=== PATIENT | female | born 1985 | race Two or more races ===

== ENCOUNTER 2024-12-05 10:32 | Day surgery (SDC) | payer BC, MEDICAID ==
[~2024-12-05 10:32] MED LIST: Sodium Chloride 0.9% 10 ML Syringe FLUSH PRN; Sodium Chloride 0.9% 10 ML Syringe FLUSH SCH
[2024-12-05] MEDS: Lactated Ringers 1,000 ML IV SCH (11:15)
[2024-12-05] MEDS ORDERED: Propofol 200 MG/20 ML SDV ONE ×2 (11:23→15:11)
[2024-12-05] MEDS ORDERED: Ondansetron 4 MG/2 ML SDV ONE (14:42)
[2024-12-05] MEDS ORDERED: fentaNYL 100 MCG/2 ML SDV ONE (14:43)
[2024-12-05] MEDS ORDERED: propofoL 500 MG/50 ML 50 ML ONE (14:43)
[2024-12-05] MEDS ORDERED: Midazolam 1 MG/ML 2 ML SDV ONE (14:43)
[2024-12-05] MEDS ORDERED: Lidocaine 2% 5 ML SDV ONE (14:44)
== END 2024-12-05 16:30 | disposition home or self-care (01) ==
LOC: JD.SDS 10:32
PROVIDERS: ATTEND Surgery
DX: D50.9 Iron deficiency anemia, unspecified (principal); K20.90 Esophagitis, unspecified without bleeding; K31.819 Angiodysplasia of stomach and duodenum without bleeding; K64.8 Other hemorrhoids; K44.9 Diaphragmatic hernia without obstruction or gangrene; R13.10 Dysphagia, unspecified; F41.1 Generalized anxiety disorder; Z79.899 Other long term (current) drug therapy
CPT/HCPCS: 43239; 45380; J2003; J2250; J2405; J2704; J3010; J7120; 00813

== ENCOUNTER 2024-12-28 14:59 | Emergency (ER) | payer BC, MEDICAID ==
[2024-12-28] MEDS: Metoclopramide 10 MG/2 ML SDV IVPUSH ONE (16:07)
[2024-12-28] MEDS: Ketorolac 30 MG/ML SDV IVPUSH ONE (16:10)
[2024-12-28] MEDS: diphenhydrAMINE 50 MG/ML SDV IVPUSH ONE ×2 (16:15→16:20)
[2024-12-28 16:31] LABS: A/G RATIO 0.9 (1-2); ALBUMIN 3.9 g/dl (3.4-5.0); ANION GAP 16.4 (5-15); BILIRUBIN TOTAL 0.5 mg/dL (0.2-1.0); C-REACTIVE PROTEIN 5.4 mg/dL (<0.30); CALCIUM 9.6 mg/dL (8.5-10.1); CREATININE 0.7 mg/dL (0.55-1.02); EST CRCL DRUG DOSING (CG) 79.04 mL/min; MAGNESIUM 1.7 mg/dL (1.8-2.4); POTASSIUM,K 4.4 mEq/L (3.5-5.1); PROTEIN TOTAL,TP 8.2 g/dl (6.4-8.2)
[2024-12-28 16:33] LABS: BASOPHILS ABSOLUTE AUTO 0.1 K/mm3 (0.0-0.2); BASOPHILS PERCENT AUTO 0.5 % (0.0-1.0); EOSINOPHILS PERCENT AUTO 0.1 % (0.0-6.0); HEMATOCRIT 45.4 % (37.0-47.0); HEMOGLOBIN 15.2 gm/dl (12.0-16.0); IMMATURE GRAN ABSOLUTE AUTO 0.03 K/mm3 (0.00-0.05); IMMATURE GRAN PERCENT AUTO 0.3 % (0.0-0.4); LYMPHOCYTES ABSOLUTE AUTO 0.5 K/mm3 (1.0-4.8); LYMPHOCYTES PERCENT AUTO 4.9 % (24.0-44.0); MEAN CORPUSCULAR HEMOGLOBIN 28.4 pg (28.0-32.0); MEAN CORPUSCULAR HGB CONC 33.5 g/dl (32.0-36.0); MEAN CORPUSCULAR VOLUME 84.7 fl (83.0-99.0); MEAN PLATELET VOLUME 11.5 fl (9.4-12.3); MONOCYTES ABSOLUTE AUTO 0.7 K/mm3 (0.0-0.8); MONOCYTES PERCENT AUTO 6.8 % (0.0-8.0); NEUTROPHILS ABSOLUTE AUTO 8.8 K/mm3 (1.8-7.7); NEUTROPHILS PERCENT AUTO 87.4 % (41.0-71.0); PLATELET COUNT,PLT 297 K/mm3 (150-400); RED BLOOD CELL COUNT 5.36 M/mm3 (4.10-5.30); WHITE BLOOD CELL COUNT,WBC 10.12 K/mm3 (3.9-11.3)
[2024-12-28 16:55] LABS: APPEARANCE,URINE CLEAR (Clear); BILIRUBIN,URINE NEGATIVE (Negative); COLOR,URINE YELLOW (Yellow); GLUCOSE,URINE NEGATIVE (Negative); KETONES,URINE 2+ (Negative); LEUKOCYTE ESTERASE,URINE 1+ (Negative); NITRITE,URINE NEGATIVE (Negative); OCCULT BLOOD,URINE NEGATIVE (Negative); PROTEIN,URINE NEGATIVE (Negative); UROBILINOGEN,URINE 0.2 (0.2-1.0)
[2024-12-28 17:23] LABS: BACTERIA,URINE MANY /hpf (FEW); MUCUS,URINE FEW /hpf (FEW); RBC,URINE 0-5 /hpf (0-5)
[2024-12-28] MEDS: Iopamidol 612 MG/ML 100 ML Bottle IVPUSH ONE (17:38)
[2024-12-28] MEDS: Sodium Chloride 0.9% 1,000 ML IV ONE (18:08)
[2024-12-28] MEDS: Sodium Chloride 0.9% 10 ML Syringe FLUSH ONE (18:08)
[2024-12-28] MEDS: Acetaminophen 325 MG Tab PO ONE (19:40)
== END 2024-12-28 19:40 | disposition home or self-care (01) ==
LOC: JD.ED 14:59
DX: R11.0 Nausea (principal); R52 Pain, unspecified; F17.200 Nicotine dependence, unspecified, uncomplicated
CPT/HCPCS: 36415; 74177; 80053; 81001; 83735; 84703; 85025; 86140; 87086; 96361; 96374; 96375; 99284; A9270; J1200; J1885; J2765; J7030; Q9967; 99283